=== PATIENT | male | born 2000 | race Caucasian/White ===

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

== ENCOUNTER 2019-04-19 22:39 | Emergency (ER) | payer BC ==
[~2019-04-19] VITALS: Ht 190.5 cm; Wt 90.7 kg
[2019-04-19 22:49] VITALS: BP 140/72
--- NOTE | 2019-04-19 23:35 | PHYS DOC ---
Past Medical History Past Medical History: Diabetes-Type I, Other Additional Past Medical Histor: Celiac Disease Past Surgical History: No Surgical History Alcohol Use: None Drug Use: None Adult General Chief Complaint Chief Complaint: FLU SYMPTOM HPI HPI Patient is a 18 year old male, accompanied by his girlfriend, who presents to the emergency department with complaints of a productive cough with yellow sputum, nasal congestion, postnasal drainage, body aches, and fatigue for the last 2 weeks. 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 Patient denies any shortness of breath, nausea, vomiting, diarrhea, abdominal pain, wheezing, fever, ear pain, or dizziness. He currently rates his pain a 5 out of 10 and describes it as body aches. He denies any alleviating or exacerbating factors. Patient is a type I diabetic and wears a continuous insulin pump. He states that his blood sugars have been normal his last blood sugar was 100. Review of Systems Review of Systems Constitutional: Denies fever or chills [] Eyes: Denies drainage redness, or eye pain [] HENT: Denies ear pain, or sore throat; reports nasal congestion Respiratory: Denies wheezing or shortness of breath ; see history of present illness[] Cardiovascular: No additional information not addressed in HPI [] GI: Denies abdominal pain, nausea, vomiting, or diarrhea [] Musculoskeletal: Reports body aches Integument: Denies rash or skin lesions [] Neurologic: Denies focal weakness or sensory changes [] Endocrine: Denies polyuria or polydipsia; see history of present illness [] Complete systems were reviewed and found to be within normal limits, except as documented in this note. Allergies Allergies Allergies Coded Allergies Type Severity Reaction Last Updated Verified No Known Drug Allergies 06/20/17 No Physical Exam Physical Exam Constitutional: Well developed, well nourished, no acute distress, non-toxic appearance. [] HENT: Normocephalic, atraumatic, bilateral external ears normal, cobblestone appearance of posterior pharynx with yellow post nasal drainage present, oropharynx moist, no oral exudates, nasal turbinates edematous and erythematous bilat with thick yellow sinus drainage noted, bilateral maxillary sinus TTP, no frontal sinus TTP Eyes: PERRLA, EOMI, conjunctiva normal, no discharge. [] Neck: Normal range of motion, no tenderness, supple, no stridor. [] Cardiovascular:Heart rate regular rhythm, no murmur [] Lungs & Thorax: Bilateral breath sounds clear to auscultation [] Skin: Warm, dry, no erythema, no rash. [] Back: No tenderness Extremities: No cyanosis, no clubbing, ROM intact, no edema. [] Neurologic: Alert and oriented X 3, no focal deficits noted. [] Psychologic: Affect normal, judgement normal, mood normal. [] Current Patient Data Vital Signs Vital Signs Date Time Temp Pulse Resp B/P (MAP) Pulse Ox O2 Delivery O2 Flow Rate FiO2 04/19/19 22:49 98.2 84 20 140/72 (94) 98 Room Air 98.2 EKG EKG [] Radiology/Procedures Radiology/Procedures [] Course & Med Decision Making Course & Med Decision Making Pertinent Labs and Imaging studies reviewed. (See chart for details) [] Dragon Disclaimer Dragon Disclaimer This electronic medical record was generated, in whole or in part, using a voice recognition dictation system. Departure Departure Impression: Primary Impression: Acute maxillary sinusitis Disposition: HOME, SELF-CARE Condition: STABLE Referrals: NO PCP (PCP) Patient Instructions: Sinusitis, [id number] Additional Instructions: Tylenol or ibuprofen as needed for pain/fever. Avoid exposure to airway irritants and pollutants. 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 Fill prescription and use as directed. Follow up with your primary care doctor next week. Scripts Amoxicillin/Potassium Clav (AUGMENTIN 875-125 TABLET) 1 Each Tablet 1 TAB PO BID for 10 Days, #20 TAB 0 Refills Prov: MICAELA ASHFORD APRN 04/19/19 Problem Qualifiers Primary Impression: Acute maxillary sinusitis Recurrence: not specified as recurrent Qualified Codes: J01.00 - Acute maxillary sinusitis, unspecified MICAELA ASHFORD PAPER CARRIER Apr 19, 2019 23:35
[2019-04-19] MEDS ORDERED: AMOX1TAB61 PO (23:46)
== END 2019-04-19 23:51 | disposition home or self-care (01) ==
LOC: ER 22:39
DX: J01.00 Acute maxillary sinusitis, unspecified (principal); M79.18 Myalgia, other site; E10.9 Type 1 diabetes mellitus without complications
CPT/HCPCS: 99283

== ENCOUNTER 2020-03-03 10:06 | Emergency (ER) | payer BC ==
[~2020-03-03] VITALS: Ht 190.5 cm; Wt 91.0 kg
[~2020-03-03 10:06] MED LIST: AMOX1TAB61 PO
[2020-03-03 10:16] VITALS: BP 138/80
--- NOTE | 2020-03-03 10:40 | RAD ---
Three-view right hand dated 03/03/2020. No comparison available. Clinical data indication: Pain after injury. FINDINGS: 3 views the right hand show mildly comminuted fracture at the neck and distal shaft of fifth metacarpal with volar angulation of the fracture site. There is overlying soft tissue swelling. Osseous structures are otherwise intact. IMPRESSION: Comminuted fracture at the distal fifth metacarpal with volar angulation. Electronically signed by: Willian Posadas MD (03/03/2020 10:37 AM) [id number]
--- NOTE | 2020-03-03 11:13 | PHYS DOC ---
Past Medical History Past Medical History: Diabetes-Type I, Other Additional Past Medical Histor: Celiac Disease Past Surgical History: No Surgical History Smoking Status: Current Every Day Smoker Alcohol Use: Occasionally Drug Use: None General Adult EDM: Chief Complaint: HAND PROBLEM HPI: HPI: Patient is a 19 year old male who presents to the emergency room after hitting the side of a barn with his fist. He is got a bunch of swelling in his hand with some pain. He denies any other injuries. She denies hitting anybody. She does not have any bite wounds. Review of Systems: Review of Systems: General: Denies fever, chills, sweats, fatigue Eyes: Denies drainage, blurred vision, eye redness HENT: Denies rhinorrhea, sore throat, earache Respiratory: Denies cough, shortness of breath, wheezing Cardiac: Denies edema, palpitations, chest pain GI: Denies abdominal pain, Nausea, vomiting MSK: Denies back pain, neck pain Skin: Denies rash, jaundice Neuro: Denies headache, dizziness Psychiatric: Denies SI/HI Heart Score: Risk Factors: Risk Factors: DM, Current or recent (<one month) smoker, HTN, HLP, family history of CAD, obesity. Risk Scores: Score 0 - 3: 2.5% MACE over next 6 weeks - Discharge Home Score 4 - 6: 20.3% MACE over next 6 weeks - Admit for Clinical Observation Score 7 - 10: 72.7% MACE over next 6 weeks - Early Invasive Strategies Allergies: Allergies: Allergies Coded Allergies Type Severity Reaction Last Updated Verified No Known Drug Allergies 06/20/17 No Physical Exam: PE: General: Awake, alert, NAD. Well Nourished, well hydrated. Cooperative HEENT: Atraumatic, EOMI, PERRL, airway patent, moist oral mucosa Neck: Supple, trachea midline Respiratory: CTA bilaterally, normal effort, no wheezing/crackles CV: RRR, no murmur, cap refill <2 GI: Soft, nondistended, nontender, no masses MSK: R hand: diffuse swelling, tenderness along the fifth metatarsal, normal sensation, intact ROM. Skin: Warm, dry, intact Neuro: A&O x3, speech NL, sensory and motor grossly intact, no focal deficits Psych: Normal affect, normal mood, not suicidal or homicidal Current Patient Data: Vital Signs: Vital Signs Date Time Temp Pulse Resp B/P (MAP) Pulse Ox O2 Delivery O2 Flow Rate FiO2 03/03/20 10:16 98.6 83 15 138/80 (99) 96 Room Air 98.6 EKG: EKG: [] Radiology/Procedures: Radiology/Procedures: [] Course & Med Decision Making: Course & Med Decision Making Pertinent Labs and Imaging studies reviewed. (See chart for details) Patient is 19-year-old male who presents to the emergency room complaining of pain in his hand after hitting a barn. X-ray was done and patient has a boxer's fracture. She does not have significant displacement of the fracture. He will be placed in an volar wrist splint. He is in town visiting from [place] and goes back to [place] today. I have discussed with him that it is very important that he follow-up with an orthopedic surgeon next week for evaluation. Patient's test results and vitals while in the ED were fully reviewed and discussed with the patient. Patient is stable and at this time does not need admission to the hospital. We have discussed strict return precautions and the importance of following up with their Primary Care Physician. Patient stated understanding and was given an opportunity to ask any questions. Patient is in agreement with plan. Debby Disclaimer: Debby Disclaimer: This electronic medical record was generated, in whole or in part, using a voice recognition dictation system. Departure Departure Impression: Primary Impression: Closed boxer's fracture Disposition: HOME, SELF-CARE Condition: STABLE Referrals: NO PCP (PCP) Patient Instructions: Boxer's Fracture-SportsMed, Cast or Splint Care, [id number] Additional Instructions: It is very important you follow up with an Orthopedic surgeon in 1 week for repeat xrays and evaluation. Justicifation of Admission Dx: Justifications for Admission: Justification of Admission Dx: N/A PRIYANKA ARZOAL MD Mar 03, 2020 11:13
== END 2020-03-03 11:19 | disposition home or self-care (01) ==
LOC: ER 10:06
DX: S62.326A Displaced fracture of shaft of fifth metacarpal bone, right hand, initial encounter for closed fracture (principal); R60.0 Localized edema; R20.2 Paresthesia of skin; E10.9 Type 1 diabetes mellitus without complications; F17.200 Nicotine dependence, unspecified, uncomplicated; W22.8XXA Striking against or struck by other objects, initial encounter; Y93.89 Activity, other specified; Y92.89 Other specified places as the place of occurrence of the external cause; Y99.8 Other external cause status
CPT/HCPCS: 29125; 73130; 99283